=== PATIENT | male | born 1975 | race African-American/Black ===

== ENCOUNTER 2020-08-08 11:09 | Emergency (ER) | payer OTHER ==
[2020-08-08 11:47] VITALS: BP 120/83; PULSE 79; TEMP 97; BMI 41.1
[2020-08-08] MEDS ORDERED: LIDOCAINE 5% TOPICAL PATCH TP ONE (12:14)
[2020-08-08] MEDS ORDERED: KETOROLAC TROMETHAMINE 30 MG/1 ML VIAL IM ONE (12:14)
[2020-08-08] MEDS ORDERED: diazePAM 5 MG TABLET PO ONE (12:15)
[2020-08-08] MEDS ORDERED: KETOROLAC TROMETHAMINE 30 MG/1 ML VIAL ONE (12:19)
[2020-08-08] MEDS ORDERED: LIDOCAINE 5% TOPICAL PATCH ONE (12:19)
[2020-08-08] MEDS ORDERED: diazePAM 5 MG TABLET ONE (12:19)
[2020-08-08 13:28] LABS: PH,URINE 7.5 (5.0-8.0); URINE APPEARANCE CLEAR; URINE BILIRUBIN NEGATIVE (NEGATIVE); URINE COLOR YELLOW; URINE GLUCOSE (UA) NEGATIVE (NEGATIVE); URINE KETONE TRACE (NEGATIVE); URINE LEUK ESTERASE NEGATIVE (NEGATIVE); URINE NITRITE NEGATIVE (NEGATIVE); URINE PROTEIN NEGATIVE (NEGATIVE)
[2020-08-08] MEDS ORDERED: ACETAMINOPHEN 500 MG TABLET (FP) PO ONE (14:03)
[2020-08-08] MEDS ORDERED: ACETAMINOPHEN 325 MG TABLET (FP) ONE (14:12)
[2020-08-08] MEDS ORDERED: LIDOCAINE PATCH REMOVAL MC SCH (22:00)
== END 2020-08-08 14:42 | disposition home or self-care (01) ==
LOC: JER 11:09
PROC: 3E0233Z Introduction of Anti-inflammatory into Muscle, Percutaneous Approach (ICD-10-PCS; principal; 2020-08-08)
DX: M54.5 Low back pain (principal)
CPT/HCPCS: 81003; 99284-25